=== PATIENT | female | born 1950 | race Caucasian/White ===

== ENCOUNTER → 2017-11-02 | Outpatient (CLI) | payer OTHER ==
[~2017-11-02] MED LIST: ADVAIR 500/501 DISK IH; AMARYL2 MG PO; Advair 500/50 Diskus IH; Advair HFA 115/21 IH; BENICAR20 MG PO; CEFTIN500 MG PO; CENTRUM SPECIA1 EACH PO; DuoNeb IH; GLUCOTROL5 MG PO; Glucophage PO; HUMULIN NP100 UNIT/1 SC; HYDROCHLOROTH12.5 M3 PO; LEVOFLOXACIN750 MG PO; LIPITOR20 MG PO; LOPID600 MG PO; Levothroid,Synthroid PO; Lopid PO; METOPROLOL TAR100 MG PO; NORVASC10 MG PO; NORVASC5 MG; NOVOLIN N100 UNITS/ SC; Norvasc PO; NovoLIN N (NPH),Humu SC; PAXIL30 MG PO; PREDNISONE20 MG PO; PROVENTIL HFA6.7 GM IH; PROVENTIL,2.5 MG/3 M IH; Paxil PO; REQUIP0.25 MG; REQUIP0.25 MG PO; SPIRIVA1 INHALATI IH; SYNTHROID125 MCG PO; SYNTHROID200 MCG PO; Spiriva IH; THEO-DUR,THEOC200 MG; THEO-DUR,THEOC200 MG PO; TOPROL XL100 MG; TOPROL XL100 MG PO; TRILIPIX135 MG PO; Tamiflu PO; predniSONE PO
== END | disposition home or self-care (01) ==
LOC: RAD 14:17
DX: J44.1 Chronic obstructive pulmonary disease with (acute) exacerbation (principal); J98.11 Atelectasis; I51.7 Cardiomegaly
CPT/HCPCS: 71020

== ENCOUNTER → 2018-05-25 | Outpatient (CLI) | payer OTHER | END | disposition home or self-care (01) | LOC: RAD 16:09 | DX: M48.56XD Collapsed vertebra, not elsewhere classified, lumbar region, subsequent encounter for fracture with routine healing (principal); M51.36 Other intervertebral disc degeneration, lumbar region | CPT/HCPCS: 72070; 72100 ==